=== PATIENT | male | born 1970 | race African-American/Black ===

== ENCOUNTER 2023-05-03 20:37 | Emergency (ER) | payer OTHER ==
[2023-05-03] MEDS ORDERED: Dexamethasone 10 MG/ML VIAL ONE (21:33)
[2023-05-03] MEDS ORDERED: Ketorolac Tromethamine 30 MG/ML VIAL ONE (21:45)
== END 2023-05-03 21:51 | disposition home or self-care (01) ==
LOC: CSHERS 20:37
DX: M70.22 Olecranon bursitis, left elbow (principal); I10 Essential (primary) hypertension; F17.210 Nicotine dependence, cigarettes, uncomplicated
CPT/HCPCS: 96372; J1100; J1885

== ENCOUNTER 2025-05-14 12:14 | Emergency (ER) | payer BC, OTHER | END 2025-05-14 14:13 | disposition home or self-care (01) | LOC: CSHERS 12:14 | DX: J20.9 Acute bronchitis, unspecified (principal); I10 Essential (primary) hypertension; E11.9 Type 2 diabetes mellitus without complications; F17.210 Nicotine dependence, cigarettes, uncomplicated | CPT/HCPCS: 71046; 87428 ==